=== PATIENT | male | born 1970 | race African-American/Black ===

== ENCOUNTER 2016-06-13 10:01 | Emergency (ER) | payer OTHER ==
[~2016-06-13] VITALS: Ht 172.7 cm; Wt 91.6 kg
[2016-06-13] MEDS ORDERED: ZYRTEC10 M5 PO (10:11)
[2016-06-13] MEDS ORDERED: DIPHENHIST50 MG PO (10:12)
[2016-06-13] MEDS ORDERED: VITAMIN D1000 UNI1 PO (10:12)
[2016-06-13] MEDS ORDERED: NEURONTIN 300300 M1 PO (10:12)
[2016-06-13] MEDS ORDERED: CLONAZEPAM 0.50.5 M1 PO (10:12)
[2016-06-13] MEDS ORDERED: [UNRECOGNIZED DRUG - OTHER] TP (10:13)
[2016-06-13] MEDS ORDERED: LISINOPRIL20 MG PO (10:13)
[2016-06-13] MEDS ORDERED: VIAGRA100 MG PO (10:14)
[2016-06-13] MEDS ORDERED: OMEPRAZOLE 20 M20 M1 PO (10:14)
[2016-06-13] MEDS ORDERED: NAPROSYN500 MG PO ×2 (10:14→11:20)
[2016-06-13] MEDS ORDERED: VITAMIN B-1100 M1 PO (10:14)
[2016-06-13] MEDS ORDERED: METFORMIN HCL500 MG PO (10:14)
[2016-06-13] MEDS ORDERED: VENLAFAXIN37.5 MG/1 PO (10:37)
[2016-06-13] MEDS ORDERED: NORCO 5-325 TA1 EACH PO (11:20)
== END 2016-06-13 11:32 | disposition home or self-care (01) ==
LOC: ER 10:01
DX: S22.31XA Fracture of one rib, right side, initial encounter for closed fracture (principal); M43.6 Torticollis; W10.9XXA Fall (on) (from) unspecified stairs and steps, initial encounter; Y93.89 Activity, other specified; Y92.89 Other specified places as the place of occurrence of the external cause; Y99.9 Unspecified external cause status

== ENCOUNTER 2016-07-04 20:39 | Emergency (ER) | payer OTHER ==
[~2016-07-04] VITALS: Ht 172.7 cm; Wt 90.7 kg
[~2016-07-04 20:39] MED LIST: CLONAZEPAM 0.50.5 M1 PO; DIPHENHIST50 MG PO; LISINOPRIL20 MG PO; METFORMIN HCL500 MG PO; NAPROSYN500 MG PO; NEURONTIN 300300 M1 PO; NORCO 5-325 TA1 EACH PO; OMEPRAZOLE 20 M20 M1 PO; VENLAFAXIN37.5 MG/1 PO; VIAGRA100 MG PO; VITAMIN B-1100 M1 PO; VITAMIN D1000 UNI1 PO; ZYRTEC10 M5 PO; [UNRECOGNIZED DRUG - OTHER] TP
[2016-07-04 22:17] VITALS: BP 156/88
== END 2016-07-04 22:18 | disposition home or self-care (01) ==
LOC: ER 20:39
DX: S51.811A Laceration without foreign body of right forearm, initial encounter (principal); W19.XXXA Unspecified fall, initial encounter; Y93.75 Activity, martial arts; Y92.89 Other specified places as the place of occurrence of the external cause; Y99.8 Other external cause status

== ENCOUNTER 2016-07-18 09:34 | Emergency (ER) | payer OTHER ==
[~2016-07-18] VITALS: Ht 172.7 cm; Wt 90.7 kg
[2016-07-18 09:41] VITALS: BP 159/86
[2016-07-18] MEDS ORDERED: KEFLEX500 MG PO (09:50)
== END 2016-07-18 09:59 | disposition home or self-care (01) ==
LOC: ER 09:34
DX: S51.811D Laceration without foreign body of right forearm, subsequent encounter (principal); X58.XXXD Exposure to other specified factors, subsequent encounter; Y92.89 Other specified places as the place of occurrence of the external cause; Y99.8 Other external cause status